=== PATIENT | male | born 1995 | race Hispanic/Latino ===

== ENCOUNTER 2017-02-16 07:49 | Outpatient (CLI) | payer OTHER ==
--- NOTE | 2017-02-16 10:21 | CT ---
CT ANGIOGRAM OF THE HEAD WITH AND WITHOUT CONTRAST: DTAE: 02/16/17. HISTORY: A 22-year-old male with seizures, and abnormal brain MRI which revealed possible basilar tip aneurys m. COMPARISON: MRI of 02/01/17. TECHNIQUE: Standard noncontrast brain CT performed. Next, 100 mL of Isovue 370 injected IV. Arterial phase scan performed from mid C2 level through vertex of scalp. Coronal and sagittal 3D MIP reconstructions. FINDINGS: There are old, healed, left frontal craniotomy changes. There is an approximately 2 x 1 x 5 cm left paramedian plate-like region of left frontal lobe encephalomalacia and gliosis, abutting the anteri or superior portion of the interhemispheric falx. Because of the location in proximity to the crani otomy changes, it is suspected that this may represent old insult related to previous surgery and/or resected tumor. There is no abnormal enhancement to indicate any residual neoplasm in this area. There is a possibility that this could be an old left anterior cerebral artery territory infarction, but that is less likely in this age group. There is no aneurysm at the basilar tip, or anywhere else intracranially. The appearance of such on the brain MRI of 02/01/17, was artifact. The anterior and posterior circulation arteries are of nor mal caliber, with no evidence of aneurysm, occlusion, or high-grade stenosis. This includes the A1 and A2 segments of the bilateral anterior cerebral arteries. There is an anterior communicating art heather. There are bilateral posterior communicating arteries. No dural venous sinus thrombosis. No o bstructive hydrocephalus. No mass effect, midline shift, or extraaxial fluid collection. All of th e paranasal sinuses, and bilateral tympanomastoid cavities, are clear. IMPRESSION: 1. Normal hopi of Lang. No aneurysm. 2. Parasagittal strip of left frontal lobe encephalomalacia and gliosis. This is favored to be rel ated to the old left frontal craniotomy, rather than an old infarction in the left anterior cerebral artery territory, but correlation with history is recommended. POS: VIVEK
== END 2017-02-16 07:50 | disposition home or self-care (01) ==
LOC: CT 07:49
PROVIDERS: ATTEND Student in an Organized Health Care Education/Training Program
DX: I72.9 Aneurysm of unspecified site (principal); R93.0 Abnormal findings on diagnostic imaging of skull and head, not elsewhere classified; G93.89 Other specified disorders of brain
CPT/HCPCS: 70496